=== PATIENT | female | born 1955 | race Caucasian/White ===

== ENCOUNTER 2020-11-07 02:59 | Emergency (ER) | payer BC ==
[2020-11-07 03:12] VITALS: BP 141/86; PULSE 99
[2020-11-07] MEDS ORDERED: Ketorolac 60 MG/2 ML SDV IM ONE (03:42)
--- NOTE | 2020-11-07 03:48 | EDM.PDOC ---
ED HPI GENERAL MEDICAL PROBLEM - General Chief Complaint: Upper Extremity Injury/Pain Stated Complaint: RIGHT HAND PAIN Time Seen by Provider: 11/07/20 03:25 Source of Information: Reports: Patient History Limitations: Reports: No Limitations - History of Present Illness INITIAL COMMENTS - FREE TEXT/NARRATIVE: 65-year-old female with worsening swelling and pain in her right wrist and hand. This is been an ongoing problem for the last couple of weeks, a course of prednisone improved her symptoms. An evaluation by her primary provider revealed a normal CBC, negative CRP, and negative rheumatoid factor. She has been off the prednisone for a couple of days and the swelling is worse, she feels tightness in the base of her little finger and a small area in the palm of the hand. No fevers or chills, no redness, no trauma. She had a ganglion cyst on the dorsal aspect of the wrist 2 years ago which resolved spontaneously. 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: - Infectious Disease History Infectious Disease History: Reports: Chicken Pox - Past Surgical History Head Surgeries/Procedures: Reports: None GI Surgical History: Reports: Colonoscopy Musculoskeletal Surgical History: Reports: Knee Replacement, Shoulder Replacement Social & Family History - Tobacco Use Tobacco Use Status *Q: Never Tobacco User - Caffeine Use Caffeine Use: Reports: Coffee - Recreational Drug Use Recreational Drug Use: No Review of Systems - Review of Systems Review Of Systems: See Below Constitutional: Denies: Fever Respiratory: Denies: Shortness of Breath Cardiovascular: Denies: Chest Pain Skin: Denies: Erythema Neurological: Reports: Paresthesia (Little and ring finger) ED EXAM, GENERAL - Physical Exam Exam: See Below Exam Limited By: No Limitations General Appearance: Alert, No Apparent Distress (Fairly uncomfortable but not distressed) Head: Atraumatic Respiratory/Chest: No Respiratory Distress, Lungs Clear Cardiovascular: Regular Rate, Rhythm Extremities: Other (Exam is otherwise limited to the right upper extremity. Patient has diffuse swelling across the flexor surface of the wrist, tender to palpation and somewhat fluctuant.) Neurological: Alert, Oriented Skin Exam: Warm, Dry Course - Vital Signs Last Recorded V/S: Last Vital Signs Temp 98.5 F 11/07/20 03:11 Pulse 99 11/07/20 03:11 Resp 18 11/07/20 03:11 BP 141/86 H 11/07/20 03:11 Pulse Ox 98 11/07/20 03:11 - Orders/Labs/Meds Meds: Medications Discontinued Medications Generic Name Dose Route Start Last Admin Trade Name Freq PRN Reason Stop Dose Admin Ketorolac Tromethamine 60 mg 11/07/20 03:42 11/07/20 03:47 Toradol IM 11/07/20 03:43 60 mg ONETIME ONE Administration Oxycodone/Acetaminophen 1 tab 11/07/20 03:50 11/07/20 03:55 Percocet 325-10 Mg PO 1 tab ONETIME PRN Administration Pain (moderate 4-6) - Re-Assessments/Exams Free Text/Narrative Re-Assessment/Exam: 11/07/20 03:50 This appears to be a very large ganglion cyst of the right wrist. She was given 60 mg of IM Toradol, 1 oral Percocet to take when she gets home and I am going to discuss this with orthopedics in the morning to see if I can get her an exam or possibly added onto his procedure schedule for decompression. 11/07/20 06:23 A formal Ortho consult was ordered after discussing her case with Dr. Taylor. Departure - Departure Time of Disposition: 03:59 Disposition: Home, Self-Care 01 Clinical Impression: Right wrist pain Ganglion cyst of wrist Qualifiers: Laterality: right Qualified Code(s): M67.431 - Ganglion, right wrist - Discharge Information Instructions: Ganglion Cyst Referrals: PCP,None [Primary Care Provider] - Forms: ED Department Discharge Care Plan Goals: Use pain pill when home, do not eat anything and drink only sips of water. You should be called by the orthopedic department in the morning for further instructions. Sepsis Event Note (ED) - Evaluation Sepsis Screening Result: No Definite Risk - Focused Exam Vital Signs: Vital Signs Temp Pulse Resp BP Pulse Ox 11/07/20 03:11 98.5 F 99 18 141/86 H 98
[2020-11-07] MEDS ORDERED: Acetaminophen/oxyCODONE 325-10 MG Tab PO PRN (03:50)
== END 2020-11-07 03:59 | disposition home or self-care (01) ==
LOC: JP.ED 02:59
DX: M67.431 Ganglion, right wrist (principal)
CPT/HCPCS: 96372; 99283; A9270; J1885

== ENCOUNTER 2020-11-07 14:19 | Day surgery (SDC) | payer BC ==
--- NOTE | 2020-11-07 12:41 | PCM.OC ---
<Lali Villagomez - Last Filed: 11/07/20 14:11> Ortho Clinic - HPI - General Date of Service: 11/07/20 Chief Complaint: Upper Extremity Injury/Pain - History of Present Illness Duration: Getting Worse Location: Reports: Upper Extremity, Right Quality: Reports: Pressure Right Hand Pain Score (Numeric/FACES): 9 - Vital Signs Vital Signs: Last Vital Signs Temp 97.1 F 11/07/20 12:04 Pulse 82 11/07/20 12:04 Resp BP 126/77 11/07/20 12:04 Pulse Ox - Related Data Allergies Allergy/AdvReac Type Severity Reaction Status Date / Time No Known Allergies Allergy Verified 11/07/20 03:09 Home Meds: Home Meds Acetaminophen/HYDROcodone [[place]art 325-5 MG] 1 tab PO Q6H PRN 7 Days #28 tab 11/07/20 [Rx] Ortho Clinic - Objective - Objective Height: 1.65 m Weight: 74.933 kg Gait: Independent, Complete Swelling/Edema: Present Deformity: Yes Sensation: Imparied Bruising: Absent Tenderness: Yes Ortho Clinic - Past Med Histry - Past Health History Medical/Surgical History: Denies Medical/Surgical History HEENT History: Reports: Impaired Vision 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: Musculoskeletal History: Reports: Other (See Below) Other Musculoskeletal History: right wrist and hand pain NKI - Infectious Disease History Infectious Disease History: Reports: Chicken Pox - Past Surgical History Head Surgeries/Procedures: Reports: None GI Surgical History: Reports: Colonoscopy Musculoskeletal Surgical History: Reports: Knee Replacement, Shoulder Replacement Other Musculoskeletal Surgeries/Procedures:: RTKA Social & Family History - Tobacco Use Tobacco Use Status *Q: Never Tobacco User - Caffeine Use Caffeine Use: Reports: Coffee [facility] Review of Systems - Review of Systems: Review Of Systems: Comprehensive ROS is negative, except as noted in HPI. General: Reports: No Symptoms Musculoskeletal: Reports: Hand Pain (right), Muscle Stiffness (R flexors, digits 1-5) [facility]o Clinic - [facility] - Problems List (1) Ganglion cyst of wrist SNOMED Code(s): 296045866 ICD Code: M67.439 - GANGLION, UNSPECIFIED WRIST Status: Acute Current Visit: No (2) Right wrist pain SNOMED Code(s): 43621293 ICD Code: M25.531 - PAIN IN RIGHT WRIST Status: Acute Current Visit: No - Assessment Assessment: Patient is a pleasant 65 y/o female, presenting with to the ortho clinic for evaluation of right hand swelling. Patient was seen by her PCP on 10/18/20 for swelling in the R hand; labs at that time revealed WBC, rheumatoid factor, and CRP all within normal limits. Per patient, onset of swelling was rather mujica dden. Patient was given a trial of prednisone by PCP, reports this decreased the swelling. However, when she stopped the prednisone a few days ago, the swelling and pain in R hand returned. Patient was evaluated in ED this morning for continued swelling, pain, and impaired sensation of the R hand. Was given 60 mg IM Toradol and 1 Percocet for pain control. Patient reports she is still in significant pain. Past medical history significant for ganglion cyst on R wrist ~2 years ago. Reports this resolved spontaneously. Patient denies fevers, chills, nor trauma to hand. Patient tested positive for COVID on 10/24/20, completed 14-day quarantine on 11/06/20. MRI from today reviewed with patient and . Exam: Extensive swelling of R hand on both dorsal and ventral aspects. Swelling continues through palm and into all digits. At rest, digits 2-5 slightly flexed. No erythema, warmth, nor abrasions to skin. Reports impaired sensation on digits, most notable on 2, 3, and 4. Fluctuant to palpation above the flexor retinaculum, more solid/dense to palpation in palmar region. IMP: Ganglion cyst of R wrist with expansion into the tendon sheath. Cyst causing compression of tendons and median nerve, contributing to impaired sensation of R digits. 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 Plan: -MRI was performed to better evaluate cyst -Plan for surgical excision of ganglion cyst on R wrist this afternoon. Risks and benefits discussed with patient. Patient in agreement to proceed with surgery today. Has been NPO since ED visit this morning. -Script sent to [facility] for post-op pain medication This clinic note was scribed by Lali Villagomez in the presence of Dr. Taylor. <Scott Taylor - Last Filed: 11/07/20 14:43> Ortho Clinic - HPI - Vital Signs Vital Signs: Last Vital Signs Temp 36.2 C 11/07/20 12:04 Pulse 82 11/07/20 12:04 Resp BP 126/77 11/07/20 12:04 Pulse Ox Ortho Clinic - [facility] - Problems List (1) Carpal tunnel syndrome of right wrist SNOMED Code(s): 09373321 ICD Code: G56.01 - CARPAL TUNNEL SYNDROME, RIGHT UPPER LIMB Status: Acute Current Visit: Yes (2) Ganglion cyst of wrist SNOMED Code(s): 964767287 ICD Code: M67.439 - GANGLION, UNSPECIFIED WRIST Status: Acute Current Visit: No Qualifiers: Laterality: right Qualified Code(s): M67.431 - Ganglion, right wrist (3) Right wrist pain SNOMED Code(s): 86268668 ICD Code: M25.531 - PAIN IN RIGHT WRIST Status: Acute Current Visit: No (4) Tenosynovitis, wrist SNOMED Code(s): 280914575 ICD Code: M65.9 - SYNOVITIS AND TENOSYNOVITIS, UNSPECIFIED Status: Acute Current Visit: Yes - Assessment Assessment: Reports decreased sensation in hand especially the third and fourth fingers. Previous history of dorsal wrist ganglion. Exam: Significant tense swelling on volar aspect of of forearm from wrist crease to approx 6 cm proximal. Normal to palpation over the transvers carpal ligament and then swelling again into the palm, slightly more toward ulnar aspect. Decrease ROM of fingers and wrist. PLAN: Decompression of cyst with carpal tunnel release and synovectomy. Will attempt to determine origin of cyst from wrist which appears to be from radiolunate region and possibly radio-ulnar joint. Discussed risk of recurrence and possible need for additional procedure(s) in the future.
--- NOTE | 2020-11-07 14:31 | CRLMR ---
HISTORY: Wrist pain and swelling. TECHNIQUE: Routine wrist protocol. FINDINGS: The appearance of the wrist is markedly abnormal. There is evidence for extensive arthropathy with apparent destruction or remodeling particularly of the navicular and lunate bones and to a lesser extent the trapezium and trapezoid. Increased fluid is seen throughout the wrist articulations with diffuse surrounding soft tissue edema present. There is also a severely arthritic appearance to the distal radioulnar joint with disruption of the triangular fibrocartilage. There is a marked increase in fluid present about the extensor tendons beginning at the level of the distal radius and extending into the metacarpal region. No tendon disruption is noted. Smaller effusions are noted of virtually all of the extensor tendons, again without tendon disruption. IMPRESSION: 1. Extensively abnormal examination of the wrist with marked arthropathy including the of bony resorption or remodeling of multiple bones as discussed. This also severe arthropathy of the distal radioulnar joint. It is possible this could represent severe osteoarthritis but could also be secondary to inflammatory arthropathy such as rheumatoid or previous septic arthritis. 2. Severe tenosynovitis of the flexor tendons diffusely with marked amount of tendon sheath fluid about the tendons from the level of the distal forearm into the metacarpal region. A milder degree of tenosynovitis is noted of the extensor tendons. Dictated by José Blanchard MD @ Nov 07 2020 2:30PM Signed by Dr. José Blanchard @ Nov 07 2020 2:30PM
[2020-11-07] MEDS ORDERED: Nozin Nasal Sanitizer NASBOTH ONE (14:40)
[2020-11-07] MEDS ORDERED: Lactated Ringers 1,000 ML IV SCH (14:45)
[2020-11-07] MEDS ORDERED: ceFAZolin 1 GM in Premix Bag 1 BAG IV ONE (15:00)
[2020-11-07] MEDS ORDERED: Glycopyrrolate 0.2 MG/ML 5 ML MDV ONE (15:03)
[2020-11-07] MEDS ORDERED: Neostigmine Methylsulfate 1 MG/ML 5 ML Syringe ONE (15:03)
[2020-11-07] MEDS ORDERED: Dexamethasone 4 MG/ML SDV ONE (15:03)
[2020-11-07] MEDS ORDERED: Rocuronium 50 MG/5 ML Vial ONE (15:03)
[2020-11-07] MEDS ORDERED: Succinylcholine 200 MG/10 ML MDV ONE (15:03)
[2020-11-07] MEDS ORDERED: Ondansetron 4 MG/2 ML SDV ONE (15:03)
[2020-11-07] MEDS ORDERED: Propofol 200 MG/20 ML SDV ONE (15:03)
[2020-11-07] MEDS ORDERED: fentaNYL 250 MCG/5 ML SDV ONE ×2 (15:05→15:18)
[2020-11-07] MEDS: Bupivacaine 0.5% 30 ML SDV ONE ×2 (15:34→16:00)
[2020-11-07 17:36] VITALS: BP 127/85; PULSE 55
--- NOTE | 2020-11-15 17:38 | OR ---
DATE OF PROCEDURE: 11/07/2020 SURGEON: Scott Taylor MD PREOPERATIVE DIAGNOSES: 1. Tenosynovitis, right wrist. 2. Possible ganglion cyst. 3. Carpal tunnel syndrome secondary to above. POSTOPERATIVE DIAGNOSES: 1. Severe flexor tenosynovitis, right wrist. 2. Carpal tunnel syndrome secondary to #1. PROCEDURE: Decompression of median nerve with carpal tunnel release and extensive synovectomy of all flexor tendons in the carpal tunnel. DRIVER ENGINEER: LOGAN Ramon. ANESTHESIA: Shi block with sedation. INDICATIONS: This is a 65-year-old female who has had two episodes of severe swelling in the right hand and wrist resulting in tingling and numbness in the median nerve distribution. Initial episode improved with a dose of steroids, but then returned and was worse. Examination and MRI are consistent with extensive synovitis throughout the carpal tunnel and flexor tendons with possible extension of a ganglion cyst. She is now taken to the operating room for decompression of the median nerve and excision of cyst and/or synovectomy as needed. Risks, benefits, potential complications were discussed. DESCRIPTION OF PROCEDURE: After adequate anesthesia was obtained, right hand was prepped and draped in a sterile fashion. A longitudinal incision was made in the palm in line with the junction of the third and fourth fingers over the carpal tunnel. It was taken down through the skin and fat pad and palmar fascia. She actually had a very thin transverse carpal ligament, and immediately upon dividing the ligament, a large amount of synovial fluid was present. The tunnel was released proximally and distally and exploration of the contents of the carpal tunnel revealed extensive tenosynovitis with thick inflamed synovium over the flexor tendons and a significant amount of synovial fluid within and around the tendon sheaths. The incision was extended proximally and across the wrist crease in a zigzag fashion. Median nerve was identified and protected throughout the procedure. Using Metzenbaum scissors, an extensive synovectomy was performed, isolating out each flexor tendon and debriding the synovium. There were no masses or other abnormalities within the carpal tunnel. There was no evidence of any connecting sinus to the joint or other synovial mass or cyst. Once the synovium was resected, the wound was irrigated. The skin was then closed with 2-0 Vicryl in dermal layer and a vertical mattress sutures of 4-0 nylon in the skin. Skin edges were infiltrated with Marcaine and a sterile dressing was applied. A well-padded volar splint was then placed. The patient tolerated procedure well. There were no complications. She was taken from the operating room in stable condition. Scott Taylor MD /[id number] MTDD
== END 2020-11-07 18:30 | disposition home or self-care (01) ==
LOC: JP.SDS 14:19
PROVIDERS: ATTEND Specialist
DX: M65.831 Other synovitis and tenosynovitis, right forearm (principal); G56.01 Carpal tunnel syndrome, right upper limb; Z96.651 Presence of right artificial knee joint; Z98.890 Other specified postprocedural states
CPT/HCPCS: 25105; 36415; 64721; 73221; 80048; A9270; J0330; J0690; J1100; J2405; J2704; J2710; J3010; J3490; J7120